=== PATIENT | female | born 1980 | race African-American/Black ===

== ENCOUNTER 2016-11-08 09:58 | Emergency (ER) | payer MEDICAID ==
[2016-11-08] MEDS ORDERED: MORPHINE 4 MG/ML SYR ONE (10:40)
== END 2016-11-08 11:39 | disposition home or self-care (01) ==
LOC: ER 09:58
DX: R51 Headache (principal); M54.12 Radiculopathy, cervical region; F17.210 Nicotine dependence, cigarettes, uncomplicated
CPT/HCPCS: 70450; 72125; 96372